=== PATIENT | male | born 1995 | race Caucasian/White ===

== ENCOUNTER 2017-06-20 13:44 | Emergency (ER) | payer OTHER ==
[~2017-06-20] VITALS: Ht 180.3 cm; Wt 63.5 kg
[2017-06-20] MEDS ORDERED: OSEL75CA PO (15:24)
[2017-06-20] MEDS ORDERED: TUSSI PRES-B L120 M1 PO (15:29)
== END 2017-06-20 15:35 | disposition home or self-care (01) ==
LOC: ER 13:44
DX: B34.9 Viral infection, unspecified (principal)